=== PATIENT | male | born 1955 | race Hispanic/Latino ===

== ENCOUNTER 2021-10-27 07:25 | Inpatient (IN) | payer MEDICARE, OTHER ==
[~2021-10-27] VITALS: Ht 177.8 cm; Wt 89.8 kg
[~2021-10-27 07:25] MED LIST: ADVAIR 500-501 EACH IH; NAPROXEN PO; SAXAGLIPTIN; Z.0.ADVAIR 500/501 E INH; Z.0.GABAPENTIN300 MG PO; Z.0.LEXAPRO10 MG PO; [UNRECOGNIZED DRUG - OTHER]
[2021-10-27] MEDS ORDERED: SODIUM CHLORIDE 0.9% 1000ML 1,000 ML IV STA (07:44)
[2021-10-27] MEDS ORDERED: ONDANSETRON HCL INJ 2MG/ML 2ML 2 MG/ML VIAL IV PRN (08:00)
[2021-10-27] MEDS ORDERED: ACETAMINOPHEN 325 MG TAB PO PRN (08:00)
[2021-10-27 08:13] LABS: BASOPHILS % 0.5 % (0.0-1.0); EOSINOPHILS # (AUTO) 0.1 (0.0-0.4); EOSINOPHILS % 1.7 % (0.0-6.0); HEMOGLOBIN 12.8 g/dL (14.0-18.0); LYMPHOCYTES # (AUTO) 1.3 (1.0-3.2); LYMPHOCYTES % 19.7 % (18.0-39.1); MEAN CORPUSCULAR HEMOGLOBIN 29.2 pg (28-32); MEAN CORPUSCULAR HGB CONC 31.2 g/dL (31-35); MEAN CORPUSCULAR VOLUME 93.4 fL (81-99); MONOCYTES # (AUTO) 0.6 (0.2-0.8); NEUTROPHILS # (AUTO) 4.4 (2.1-6.9); NEUTROPHILS % 68.6 % (38.7-80.0); PLATELET COUNT 238 x10e3/uL (140-360); RED BLOOD COUNT 4.39 x10e6/uL (4.3-5.7); RED CELL DISTRIBUTION WIDTH 13.9 % (11.7-14.4)
[2021-10-27] MEDS: PIPERACILLIN/TAZOBACTAM 3.375 GM in SODIUM CHLORIDE 0.9% 50ML 50 ML IV SCH ×3 (08:20→20:39)
[2021-10-27 08:28] LABS: CLARITY,URINE TURBID (CLEAR); COLOR,URINE YELLOW (YELLOW); KETONES,URINE NEGATIVE (NEGATIVE); LEUKOCYTE ESTERASE ,URINE MODERATE (NEGATIVE); NITRITE,URINE POSITIVE (NEGATIVE); PROTEIN,URINE DIPSTICK NEGATIVE (NEGATIVE); URINE UROBILINOGEN 0.2 mg/dL (0.2 - 1)
[2021-10-27 08:29] LABS: ALBUMIN 3.9 g/dL (3.5-5.0); CALCIUM 9.4 mg/dL (8.4-10.2); CREATININE, SERUM 0.85 mg/dL (0.72-1.25); MAGNESIUM 1.8 MG/DL (1.3-2.1)
[2021-10-27 08:54] LABS: BACTERIA,URINE MANY /HPF; EPITHELIAL CELLS,URINE FEW /LPF; RBC,URINE >50 /HPF (0-5); WBC,URINE (MAN) >50 /HPF (0-5)
[2021-10-27 09:01] VITALS: BP 154/74
[2021-10-27 09:15] VITALS: BP 154/74
[2021-10-27 11:38] VITALS: BP 140/73
[2021-10-27] MEDS ORDERED: DEXTROSE 50% SYRINGE 50 ML IV PRN (12:30)
[2021-10-27] MEDS ORDERED: IOPAMIDOL 370 MG/ML 200 ML INFUS..BTL INJ ONE (15:37)
[2021-10-27] MEDS ORDERED: SODIUM CHLORIDE 0.9% 250ML 250 ML ONE (15:37)
[2021-10-27 15:42] VITALS: BP 127/70
[2021-10-27] MEDS: INSULIN REGULAR, HUMAN 100 UNIT/1 ML SQ SCH ×2 (16:30→20:40)
[2021-10-27] MEDS: APIXABAN 5 MG TABLET PO SCH (17:44)
[2021-10-27 20:00] VITALS: BP 155/85
[2021-10-27 20:02] VITALS: BP 127/70
[2021-10-28] VITALS (8 sets, daily range): BP systolic 114–147; BP diastolic 54–78
[2021-10-28] MEDS: PIPERACILLIN/TAZOBACTAM 3.375 GM in SODIUM CHLORIDE 0.9% 50ML 50 ML IV SCH ×4 (02:36→19:56)
[2021-10-28 07:21] LABS: BASOPHILS % 0.5 % (0.0-1.0); EOSINOPHILS # (AUTO) 0.1 (0.0-0.4); EOSINOPHILS % 1.1 % (0.0-6.0); HEMATOCRIT 41.2 % (38.2-49.6); LYMPHOCYTES # (AUTO) 1.5 (1.0-3.2); LYMPHOCYTES % 20.6 % (18.0-39.1); MEAN CORPUSCULAR HEMOGLOBIN 28.9 pg (28-32); MEAN CORPUSCULAR HGB CONC 31.6 g/dL (31-35); MEAN CORPUSCULAR VOLUME 91.6 fL (81-99); MONOCYTES # (AUTO) 0.6 (0.2-0.8); MONOCYTES % 8.6 % (4.4-11.3); NEUTROPHILS # (AUTO) 5.1 (2.1-6.9); NEUTROPHILS % 68.9 % (38.7-80.0); PLATELET COUNT 240 x10e3/uL (140-360); RED CELL DISTRIBUTION WIDTH 13.7 % (11.7-14.4)
[2021-10-28] MEDS: INSULIN REGULAR, HUMAN 100 UNIT/1 ML SQ SCH ×4 (07:30→20:50)
[2021-10-28 07:49] LABS: ALBUMIN 3.9 g/dL (3.5-5.0); ALBUMIN/GLOBULIN RATIO 1.1 (0.8-2.0); ANION GAP 15.1 mmol/L (8-16); CALCIUM 9.7 mg/dL (8.4-10.2); CREATININE, SERUM 0.84 mg/dL (0.72-1.25); POTASSIUM 4.1 mmol/L (3.5-5.1)
[2021-10-28] MEDS: SALMETEROL/FLUTICASONE 500/50 INH SCH ×2 (09:00→09:15)
[2021-10-28] MEDS: ESCITALOPRAM OXALATE 10 MG TAB PO SCH (09:15)
[2021-10-28] MEDS: APIXABAN 5 MG TABLET PO SCH ×2 (09:15→17:14)
[2021-10-28] MEDS: GABAPENTIN 300 MG CAP PO SCH (09:15)
[2021-10-29] VITALS (9 sets, daily range): BP systolic 113–158; BP diastolic 50–81
[2021-10-29] MEDS: PIPERACILLIN/TAZOBACTAM 3.375 GM in SODIUM CHLORIDE 0.9% 50ML 50 ML IV SCH ×4 (02:00→21:10)
[2021-10-29] MEDS: INSULIN REGULAR, HUMAN 100 UNIT/1 ML SQ SCH ×5 (07:29→22:32)
[2021-10-29] MEDS: APIXABAN 5 MG TABLET PO SCH ×2 (08:20→16:40)
[2021-10-29] MEDS: SALMETEROL/FLUTICASONE 500/50 INH SCH (08:20)
[2021-10-29] MEDS: GABAPENTIN 300 MG CAP PO SCH (08:20)
[2021-10-29] MEDS: ESCITALOPRAM OXALATE 10 MG TAB PO SCH (08:20)
[2021-10-30] VITALS (7 sets, daily range): BP systolic 0–127; BP diastolic 64–71
[2021-10-30] MEDS: PIPERACILLIN/TAZOBACTAM 3.375 GM in SODIUM CHLORIDE 0.9% 50ML 50 ML IV SCH ×4 (03:27→20:46)
[2021-10-30] MEDS: INSULIN REGULAR, HUMAN 100 UNIT/1 ML SQ SCH ×4 (07:30→20:48)
[2021-10-30] MEDS: ESCITALOPRAM OXALATE 10 MG TAB PO SCH (10:20)
[2021-10-30] MEDS: APIXABAN 5 MG TABLET PO SCH ×2 (10:20→17:01)
[2021-10-30] MEDS: GABAPENTIN 300 MG CAP PO SCH (10:20)
[2021-10-30] MEDS: SALMETEROL/FLUTICASONE 500/50 INH SCH (20:45)
[2021-10-31] MEDS: PIPERACILLIN/TAZOBACTAM 3.375 GM in SODIUM CHLORIDE 0.9% 50ML 50 ML IV SCH ×2 (01:26→08:26)
[2021-10-31 04:00] VITALS: BP 136/68
[2021-10-31] MEDS: INSULIN REGULAR, HUMAN 100 UNIT/1 ML SQ SCH ×2 (07:30→11:41)
[2021-10-31 08:23] VITALS: BP 115/70
[2021-10-31] MEDS: GABAPENTIN 300 MG CAP PO SCH (08:26)
[2021-10-31] MEDS: ESCITALOPRAM OXALATE 10 MG TAB PO SCH (08:26)
[2021-10-31 08:56] VITALS: BP 115/70
[2021-10-31] MEDS: MEROPENEM 500 MG in SODIUM CHLORIDE 0.9% 50ML 50 ML IV SCH ×2 (09:59→13:52)
[2021-10-31 12:07] VITALS: BP 119/75
[2021-10-31 15:00] VITALS: BP 144/82
[2021-10-31] MEDS ORDERED: MEROPENEM500 MG (15:15)
[2021-10-31] MEDS ORDERED: ONDANSETRON HCL 4 MG ORAL DISINTEGRATING TAB PO PRN (15:45)
[2021-11-01] MEDS ORDERED: ELIQUIS5 MG PO (15:34)
[2021-11-01] MEDS ORDERED: JANUMET XR 1001 EACH PO (15:34)
[2021-11-01] MEDS ORDERED: [UNRECOGNIZED DRUG - OTHER] PO (15:38)
[2021-11-02] MEDS ORDERED: AVONEX PEN30 MCG/0.5 IM (12:04)
[2021-11-02] MEDS ORDERED: NAPROXEN500 M1 PO (12:04)
[2021-11-02] MEDS ORDERED: MEROPENEM500 MG IV (12:16)
[2021-11-03] MEDS ORDERED: LOSARTAN PO (07:29)
== END 2021-10-31 15:47 | disposition home or self-care (01) | DRG 690 ==
LOC: ER 07:30 → ERHOLD 07:57 → MED/SURG3 08:48
PROVIDERS: ADMIT Internal Medicine; ATTEND Internal Medicine
PROC: 02HV33Z Insertion of Infusion Device into Superior Vena Cava, Percutaneous Approach (ICD-10-PCS; principal; 2021-10-30)
PROC: XW043N5 Introduction of Meropenem-vaborbactam Anti-infective into Central Vein, Percutaneous Approach, New Technology Group 5 (ICD-10-PCS; 2021-10-31)
DX: N39.0 Urinary tract infection, site not specified (principal); Z16.12 Extended spectrum beta lactamase (ESBL) resistance; B96.20 Unspecified Escherichia coli [E. coli] as the cause of diseases classified elsewhere; E11.65 Type 2 diabetes mellitus with hyperglycemia; Z86.718 Personal history of other venous thrombosis and embolism; Z79.01 Long term (current) use of anticoagulants; Z86.711 Personal history of pulmonary embolism; G35 Multiple sclerosis; N40.0 Benign prostatic hyperplasia without lower urinary tract symptoms; N20.0 Calculus of kidney; I10 Essential (primary) hypertension; Z96.0 Presence of urogenital implants; F32.A Depression, unspecified; N31.9 Neuromuscular dysfunction of bladder, unspecified; D64.9 Anemia, unspecified; N52.9 Male erectile dysfunction, unspecified; E66.9 Obesity, unspecified; Z68.28 Body mass index [BMI] 28.0-28.9, adult; Z20.822 Contact with and (suspected) exposure to COVID-19; R31.29 Other microscopic hematuria; N40.1 Benign prostatic hyperplasia with lower urinary tract symptoms; N13.8 Other obstructive and reflux uropathy
CPT/HCPCS: 36415; 36569; 71045; 74178; 80053; 81001; 82948; 83735; 85025; 87040; 87086; 87186; 99284; J2185; J2543; J7030; J7050; Q9967; U0002

== ENCOUNTER → 2021-11-03 | Day surgery (SDC) | payer OTHER ==
[2021-11-01 16:28] LABS: BASOPHILS % 0.3 % (0.0-1.0); EOSINOPHILS # (AUTO) 0.1 (0.0-0.4); EOSINOPHILS % 1.5 % (0.0-6.0); HEMATOCRIT 41.8 % (38.2-49.6); HEMOGLOBIN 13.2 g/dL (14.0-18.0); LYMPHOCYTES # (AUTO) 1.2 (1.0-3.2); LYMPHOCYTES % 16.2 % (18.0-39.1); MEAN CORPUSCULAR HEMOGLOBIN 28.8 pg (28-32); MEAN CORPUSCULAR HGB CONC 31.6 g/dL (31-35); MEAN CORPUSCULAR VOLUME 91.3 fL (81-99); MONOCYTES # (AUTO) 0.8 (0.2-0.8); MONOCYTES % 10.4 % (4.4-11.3); NEUTROPHILS # (AUTO) 5.4 (2.1-6.9); NEUTROPHILS % 71.2 % (38.7-80.0); PLATELET COUNT 195 x10e3/uL (140-360); RED BLOOD COUNT 4.58 x10e6/uL (4.3-5.7); RED CELL DISTRIBUTION WIDTH 13.8 % (11.7-14.4)
[2021-11-01 16:50] LABS: CALCIUM 9.4 mg/dL (8.4-10.2); CREATININE, SERUM 0.86 mg/dL (0.72-1.25)
[~2021-11-03] MED LIST changes: +AVONEX PEN30 MCG/0.5 IM; +BELLADONNA/OPIUM 30 MG SUPP RC ONE; +DEXAMETHASONE SOD PHOS INJ 4 MG/ML SDV ONE; +ELIQUIS5 MG PO; +EPHEDRINE SULFATE INJ 50 MG/ML VIAL ONE; +FENTANYL CITRATE/PF 100MCG/2 ML INJ ONE; +GENTAMICIN 80MG/NS 100 ML 200 ML IV ONE; +GLYCOPYRROLATE INJ 0.2 MG/ML VIAL ONE; +IOPAMIDOL 300MG/ML 50ML INFUS..BTL IV ONE; +JANUMET XR 1001 EACH PO; +LIDOCAINE HCL 2% LOCAL INJ 5 ML SDV VIAL INJ ONE; +LOSARTAN PO; +MEROPENEM500 MG; +MEROPENEM500 MG IV; +MIDAZOLAM HCL 2 MG/2 ML VIAL ONE; +NAPROXEN500 M1 PO; +ONDANSETRON HCL INJ 2MG/ML 2ML 2 MG/ML VIAL ONE; +POVIDONE IODINE 0.05% 0.05 % ML PO ONE; +PROPOFOL IV EMULSION 10 MG/ML 20 ML VIAL ONE; +SEVOFLURANE INHAL SOLN 250 ML PEN BTL ONE; +[UNRECOGNIZED DRUG - OTHER] PO
[2021-11-03 11:15] VITALS: BP 138/89
== END | disposition home or self-care (01) ==
LOC: OR 06:47
PROVIDERS: ATTEND Urology
DX: N20.0 Calculus of kidney (principal); N35.919 Unspecified urethral stricture, male, unspecified site; N39.0 Urinary tract infection, site not specified; N40.1 Benign prostatic hyperplasia with lower urinary tract symptoms; N13.8 Other obstructive and reflux uropathy; N32.89 Other specified disorders of bladder; E11.9 Type 2 diabetes mellitus without complications; G35 Multiple sclerosis; I49.1 Atrial premature depolarization; J44.9 Chronic obstructive pulmonary disease, unspecified; F32.A Depression, unspecified; Z01.810 Encounter for preprocedural cardiovascular examination; Z01.812 Encounter for preprocedural laboratory examination; Z01.818 Encounter for other preprocedural examination; Z20.822 Contact with and (suspected) exposure to COVID-19; Z79.02 Long term (current) use of antithrombotics/antiplatelets; Z79.899 Other long term (current) drug therapy; Z86.718 Personal history of other venous thrombosis and embolism; Z86.711 Personal history of pulmonary embolism
CPT/HCPCS: 36415; 50590; 71046; 74018; 80048; 82948; 83970; 84550; 85025; 93005; C1758; J1100; J1580; J2001; J2250; J2405; J3010; U0002

== ENCOUNTER → 2021-11-27 | Outpatient (CLI) | payer OTHER ==
[~2021-11-27] MED LIST changes: -BELLADONNA/OPIUM 30 MG SUPP RC ONE; -DEXAMETHASONE SOD PHOS INJ 4 MG/ML SDV ONE; -EPHEDRINE SULFATE INJ 50 MG/ML VIAL ONE; -FENTANYL CITRATE/PF 100MCG/2 ML INJ ONE; -GENTAMICIN 80MG/NS 100 ML 200 ML IV ONE; -GLYCOPYRROLATE INJ 0.2 MG/ML VIAL ONE; -IOPAMIDOL 300MG/ML 50ML INFUS..BTL IV ONE; -LIDOCAINE HCL 2% LOCAL INJ 5 ML SDV VIAL INJ ONE; -MIDAZOLAM HCL 2 MG/2 ML VIAL ONE; -ONDANSETRON HCL INJ 2MG/ML 2ML 2 MG/ML VIAL ONE; -POVIDONE IODINE 0.05% 0.05 % ML PO ONE; -PROPOFOL IV EMULSION 10 MG/ML 20 ML VIAL ONE; -SEVOFLURANE INHAL SOLN 250 ML PEN BTL ONE
== END ==
LOC: RAD 08:22
PROVIDERS: ATTEND Urology
DX: N20.0 Calculus of kidney (principal)
CPT/HCPCS: 74018

== ENCOUNTER 2022-01-30 10:12 | Emergency (ER) | payer MEDICARE, OTHER ==
[~2022-01-30] VITALS: Ht 177.8 cm; Wt 89.8 kg
[2022-01-30 11:02] LABS: BASOPHILS % 0.3 % (0.0-1.0); EOSINOPHILS # (AUTO) 0.1 (0.0-0.4); EOSINOPHILS % 0.7 % (0.0-6.0); HEMATOCRIT 47.5 % (38.2-49.6); HEMOGLOBIN 15.5 g/dL (14.0-18.0); LYMPHOCYTES # (AUTO) 1.5 (1.0-3.2); LYMPHOCYTES % 12.7 % (18.0-39.1); MEAN CORPUSCULAR HEMOGLOBIN 29.8 pg (28-32); MEAN CORPUSCULAR HGB CONC 32.6 g/dL (31-35); MEAN CORPUSCULAR VOLUME 91.2 fL (81-99); MONOCYTES # (AUTO) 0.8 (0.2-0.8); MONOCYTES % 6.7 % (4.4-11.3); NEUTROPHILS # (AUTO) 9.4 (2.1-6.9); NEUTROPHILS % 78.5 % (38.7-80.0); PLATELET COUNT 249 x10e3/uL (140-360); RED BLOOD COUNT 5.21 x10e6/uL (4.3-5.7); RED CELL DISTRIBUTION WIDTH 14.5 % (11.7-14.4)
[2022-01-30 11:21] LABS: ANION GAP 14.5 mmol/L (8-16); CALCIUM 9.6 mg/dL (8.4-10.2); CREATININE, SERUM 0.98 mg/dL (0.72-1.25); POTASSIUM 4.5 mmol/L (3.5-5.1)
[2022-01-30 11:42] LABS: CLARITY,URINE CLEAR (CLEAR); COLOR,URINE YELLOW (YELLOW)
[2022-01-30 11:43] LABS: KETONES,URINE NEGATIVE (NEGATIVE); LEUKOCYTE ESTERASE ,URINE TRACE (NEGATIVE); NITRITE,URINE NEGATIVE (NEGATIVE); PROTEIN,URINE DIPSTICK NEGATIVE (NEGATIVE); URINE UROBILINOGEN 0.2 mg/dL (0.2 - 1)
[2022-01-30 12:22] LABS: BACTERIA,URINE MODERATE /HPF; WBC,URINE (MAN) 0-5 /HPF (0-5)
[2022-01-30 12:23] LABS: EPITHELIAL CELLS,URINE FEW /LPF
[2022-01-30] MEDS ORDERED: FOSFOMYCIN TROME3 GM PO (12:29)
== END 2022-01-30 14:20 | disposition home or self-care (01) ==
LOC: ER 10:18
DX: R30.0 Dysuria (principal); N39.0 Urinary tract infection, site not specified; I10 Essential (primary) hypertension; E11.65 Type 2 diabetes mellitus with hyperglycemia; F32.A Depression, unspecified; Z86.718 Personal history of other venous thrombosis and embolism
CPT/HCPCS: 36415; 71045; 80048; 81001; 85025; 85379; 87086; 99284

== ENCOUNTER 2022-03-09 10:42 | Inpatient (IN) | payer MEDICARE, OTHER ==
[2022-03-07 13:44] LABS: BASOPHILS % 0.3 % (0.0-1.0); EOSINOPHILS # (AUTO) 0.1 (0.0-0.4); EOSINOPHILS % 0.8 % (0.0-6.0); HEMATOCRIT 40.8 % (38.2-49.6); HEMOGLOBIN 13.2 g/dL (14.0-18.0); LYMPHOCYTES # (AUTO) 1.4 (1.0-3.2); LYMPHOCYTES % 21.4 % (18.0-39.1); MEAN CORPUSCULAR HEMOGLOBIN 29.3 pg (28-32); MEAN CORPUSCULAR HGB CONC 32.4 g/dL (31-35); MEAN CORPUSCULAR VOLUME 90.7 fL (81-99); MONOCYTES # (AUTO) 0.6 (0.2-0.8); MONOCYTES % 9.3 % (4.4-11.3); NEUTROPHILS # (AUTO) 4.3 (2.1-6.9); NEUTROPHILS % 67.9 % (38.7-80.0); PLATELET COUNT 188 x10e3/uL (140-360); RED CELL DISTRIBUTION WIDTH 14.6 % (11.7-14.4)
[2022-03-07 14:04] LABS: ANION GAP 13.8 mmol/L (8-16); CREATININE, SERUM 0.79 mg/dL (0.72-1.25); POTASSIUM 3.8 mmol/L (3.5-5.1)
[~2022-03-09] VITALS: Ht 177.8 cm; Wt 86.2 kg
[~2022-03-09 10:42] MED LIST changes: +FOSFOMYCIN TROME3 GM PO; +MULTI-VITAMIN1 EACH PO
[2022-03-09] MEDS ORDERED: CEFTRIAXONE 1 GM VIAL ONE (11:58)
[2022-03-09] MEDS ORDERED: SODIUM CHLORIDE 0.9% 1000ML 1,000 ML ONE (11:58)
[2022-03-09] MEDS ORDERED: GENTAMICIN 80MG/NS 100 ML 200 ML IV ONE (11:58)
[2022-03-09] MEDS ORDERED: POVIDONE IODINE 0.05% 0.05 % ML PO ONE (12:14)
[2022-03-09] MEDS ORDERED: ONDANSETRON HCL INJ 2MG/ML 2ML 2 MG/ML VIAL ONE (12:14)
[2022-03-09] MEDS ORDERED: SEVOFLURANE INHAL SOLN 250 ML PEN BTL ONE (12:14)
[2022-03-09] MEDS ORDERED: LIDOCAINE HCL 2% LOCAL INJ 5 ML SDV VIAL INJ ONE (12:14)
[2022-03-09] MEDS ORDERED: PROPOFOL IV EMULSION 10 MG/ML 20 ML VIAL ONE (12:14)
[2022-03-09] MEDS ORDERED: DEXAMETHASONE SOD PHOS INJ 4 MG/ML SDV ONE (12:14)
[2022-03-09] MEDS ORDERED: MIDAZOLAM HCL 2 MG/2 ML VIAL ONE (12:40)
[2022-03-09] MEDS ORDERED: FENTANYL CITRATE/PF 100MCG/2 ML INJ ONE ×2 (12:40→17:34)
[2022-03-09] MEDS ORDERED: BELLADONNA/OPIUM 30 MG SUPP RC ONE (15:13)
[2022-03-09] MEDS ORDERED: IOPAMIDOL 610MG/1ML 300 MG/ML VIAL IV ONE (15:13)
[2022-03-09] MEDS ORDERED: PHENAZOPYRIDINE HCL 100 MG TAB PO PRN (17:15)
[2022-03-09] MEDS ORDERED: ACETAMINOPHEN/CODEINE 300MG - 30MG TAB PO PRN (17:15)
[2022-03-09] MEDS ORDERED: DIPHENHYDRAMINE HCL 25 MG CAP PO PRN (17:15)
[2022-03-09] MEDS ORDERED: MORPHINE SULFATE 1 MG/ML 30ML PCA IV PRN (17:15)
[2022-03-09] MEDS ORDERED: NALOXONE HCL INJ 0.4 MG/ML AMP IV PRN (17:15)
[2022-03-09] MEDS ORDERED: ACETAMINOPHEN 1000 MG/100 ML IV PRN (17:15)
[2022-03-09] MEDS ORDERED: B&O 60MG R/S 60 MG SUPP PR PRN (17:15)
[2022-03-09] MEDS ORDERED: ONDANSETRON HCL INJ 2MG/ML 2ML 2 MG/ML VIAL IV PRN (17:15)
[2022-03-09] MEDS ORDERED: MEPERIDINE HCL INJ 25 MG/ML VIAL ONE (17:21)
[2022-03-09 17:43] LABS: BASOPHILS % 0.1 % (0.0-1.0); EOSINOPHILS % 0.4 % (0.0-6.0); HEMATOCRIT 39.7 % (38.2-49.6); HEMOGLOBIN 12.5 g/dL (14.0-18.0); LYMPHOCYTES # (AUTO) 1.3 (1.0-3.2); LYMPHOCYTES % 13.8 % (18.0-39.1); MEAN CORPUSCULAR HEMOGLOBIN 29.1 pg (28-32); MEAN CORPUSCULAR HGB CONC 31.5 g/dL (31-35); MEAN CORPUSCULAR VOLUME 92.3 fL (81-99); MONOCYTES # (AUTO) 0.3 (0.2-0.8); NEUTROPHILS # (AUTO) 7.7 (2.1-6.9); NEUTROPHILS % 82.3 % (38.7-80.0); PLATELET COUNT 171 x10e3/uL (140-360); RED CELL DISTRIBUTION WIDTH 14.5 % (11.7-14.4)
[2022-03-09 18:04] LABS: ANION GAP 12.5 mmol/L (8-16); CALCIUM 7.8 mg/dL (8.4-10.2); CREATININE, SERUM 0.71 mg/dL (0.72-1.25); POTASSIUM 4.5 mmol/L (3.5-5.1)
[2022-03-09] MEDS ORDERED: MORPHINE SULFATE 1 MG/ML 30ML PCA ONE (18:26)
[2022-03-09 20:00] VITALS: BP_SYST 146; BP_SYST 157; BP_DIAS 74; BP_DIAS 82
[2022-03-09] MEDS: SODIUM CHLORIDE 0.9% 1000ML 1,000 ML IV SCH (21:12)
[2022-03-10] VITALS (7 sets, daily range): BP systolic 130–142; BP diastolic 59–74
[2022-03-10 06:54] LABS: BASOPHILS % 0.1 % (0.0-1.0); EOSINOPHILS % 0.2 % (0.0-6.0); HEMATOCRIT 37.9 % (38.2-49.6); HEMOGLOBIN 12.2 g/dL (14.0-18.0); LYMPHOCYTES % 11.1 % (18.0-39.1); MEAN CORPUSCULAR HEMOGLOBIN 29.3 pg (28-32); MEAN CORPUSCULAR HGB CONC 32.2 g/dL (31-35); MEAN CORPUSCULAR VOLUME 91.1 fL (81-99); MONOCYTES # (AUTO) 0.7 (0.2-0.8); NEUTROPHILS # (AUTO) 7.6 (2.1-6.9); NEUTROPHILS % 81.3 % (38.7-80.0); PLATELET COUNT 184 x10e3/uL (140-360); RED BLOOD COUNT 4.16 x10e6/uL (4.3-5.7); RED CELL DISTRIBUTION WIDTH 14.2 % (11.7-14.4)
[2022-03-10 07:17] LABS: ANION GAP 12.2 mmol/L (8-16); CALCIUM 7.9 mg/dL (8.4-10.2); CREATININE, SERUM 0.7 mg/dL (0.72-1.25); POTASSIUM 4.2 mmol/L (3.5-5.1)
[2022-03-10] MEDS: SODIUM CHLORIDE 0.9% 1000ML 1,000 ML IV SCH ×2 (07:35→20:30)
[2022-03-10] MEDS: DOCUSATE SODIUM 100 MG CAP PO SCH ×2 (09:00→18:13)
[2022-03-10] MEDS ORDERED: DEXTROSE 50% SYRINGE 50 ML IV PRN (10:45)
[2022-03-10] MEDS: INSULIN LISPRO 100 UNIT/1 ML 3ML VIAL SQ SCH ×3 (11:30→20:32)
[2022-03-10] MEDS ORDERED: ALBUTEROL/IPRATROPIUM 3 ML NEB NEB PRN (11:45)
[2022-03-10] MEDS ORDERED: AVODART0.5 MG PO (11:57)
[2022-03-10] MEDS ORDERED: DOCUSATE SODIU100 MG PO (11:57)
[2022-03-10] MEDS ORDERED: SIMVASTATIN20 MG PO (11:57)
[2022-03-10] MEDS ORDERED: MONTELUKAST SOD10 MG PO (13:26)
[2022-03-10] MEDS ORDERED: FLOMAX0.4 MG PO (13:26)
[2022-03-10] MEDS ORDERED: OXYBUTYNIN CHLOR5 M1 PO (13:26)
[2022-03-10] MEDS ORDERED: DOCUSATE SODIUM 100 MG CAP PO SCH (17:00)
[2022-03-10] MEDS ORDERED: APIXABAN 5 MG TABLET PO SCH (17:00)
[2022-03-10] MEDS: MONTELUKAST SODIUM 10 MG TAB PO SCH (20:30)
[2022-03-10] MEDS: SIMVASTATIN 20 MG TAB PO SCH (20:30)
[2022-03-11] VITALS (7 sets, daily range): BP systolic 111–153; BP diastolic 62–76
[2022-03-11 05:58] LABS: BASOPHILS % 0.1 % (0.0-1.0); EOSINOPHILS # (AUTO) 0.1 (0.0-0.4); EOSINOPHILS % 0.9 % (0.0-6.0); HEMATOCRIT 38.6 % (38.2-49.6); HEMOGLOBIN 12.5 g/dL (14.0-18.0); LYMPHOCYTES # (AUTO) 1.5 (1.0-3.2); LYMPHOCYTES % 18.4 % (18.0-39.1); MEAN CORPUSCULAR HEMOGLOBIN 29.1 pg (28-32); MEAN CORPUSCULAR HGB CONC 32.4 g/dL (31-35); MONOCYTES # (AUTO) 0.8 (0.2-0.8); MONOCYTES % 10.4 % (4.4-11.3); NEUTROPHILS # (AUTO) 5.5 (2.1-6.9); NEUTROPHILS % 69.8 % (38.7-80.0); PLATELET COUNT 170 x10e3/uL (140-360); RED BLOOD COUNT 4.29 x10e6/uL (4.3-5.7); RED CELL DISTRIBUTION WIDTH 14.4 % (11.7-14.4)
[2022-03-11] MEDS: SALMETEROL/FLUTICASONE 500/50 INH SCH (06:00)
[2022-03-11 06:15] LABS: ANION GAP 13.8 mmol/L (8-16); CREATININE, SERUM 0.71 mg/dL (0.72-1.25); POTASSIUM 3.8 mmol/L (3.5-5.1)
[2022-03-11] MEDS: INSULIN LISPRO 100 UNIT/1 ML 3ML VIAL SQ SCH ×4 (07:30→21:00)
[2022-03-11] MEDS: SODIUM CHLORIDE 0.9% 1000ML 1,000 ML IV SCH ×2 (08:45→23:35)
[2022-03-11] MEDS: OXYBUTYNIN CHLORIDE XL 5 MG TAB PO SCH (09:00)
[2022-03-11] MEDS: DOCUSATE SODIUM 100 MG CAP PO SCH ×2 (09:00→17:00)
[2022-03-11] MEDS: SENNOSIDES 8.6 MG TAB PO SCH (09:00)
[2022-03-11] MEDS: SITAGLIPTIN 100 MG TAB PO SCH (09:00)
[2022-03-11] MEDS: TAMSULOSIN HCL 0.4 MG CAP PO SCH (09:00)
[2022-03-11] MEDS: DUTASTERIDE 0.5 MG CAP PO SCH (09:00)
[2022-03-11] MEDS: METFORMIN HCL 500 MG TAB PO SCH (09:00)
[2022-03-11] MEDS: LOSARTAN POTASSIUM 100 MG TAB PO SCH (09:00)
[2022-03-11] MEDS ORDERED: DOCUSATE SODIUM 100 MG CAP PO SCH (09:00)
[2022-03-11] MEDS ORDERED: OYST-CAL-D 500MG TABLET PO ONE (10:30)
[2022-03-11] MEDS ORDERED: MAGNESIUM SULFATE 2GM/50ML 50 ML IV ONE (10:30)
[2022-03-11] MEDS: MONTELUKAST SODIUM 10 MG TAB PO SCH (21:14)
[2022-03-11] MEDS: SIMVASTATIN 20 MG TAB PO SCH (21:14)
[2022-03-12] VITALS: BP 158/84
[2022-03-12 04:00] VITALS: BP 135/70
[2022-03-12 05:55] LABS: BASOPHILS % 0.3 % (0.0-1.0); EOSINOPHILS # (AUTO) 0.1 (0.0-0.4); EOSINOPHILS % 1.4 % (0.0-6.0); HEMATOCRIT 39.6 % (38.2-49.6); HEMOGLOBIN 13.1 g/dL (14.0-18.0); LYMPHOCYTES # (AUTO) 1.5 (1.0-3.2); LYMPHOCYTES % 18.5 % (18.0-39.1); MEAN CORPUSCULAR HEMOGLOBIN 29.3 pg (28-32); MEAN CORPUSCULAR HGB CONC 33.1 g/dL (31-35); MEAN CORPUSCULAR VOLUME 88.6 fL (81-99); MONOCYTES % 12.3 % (4.4-11.3); NEUTROPHILS # (AUTO) 5.4 (2.1-6.9); NEUTROPHILS % 66.9 % (38.7-80.0); PLATELET COUNT 179 x10e3/uL (140-360); RED BLOOD COUNT 4.47 x10e6/uL (4.3-5.7); RED CELL DISTRIBUTION WIDTH 14.4 % (11.7-14.4)
[2022-03-12] MEDS: SALMETEROL/FLUTICASONE 500/50 INH SCH (06:03)
[2022-03-12 06:25] LABS: ANION GAP 11.9 mmol/L (8-16); CALCIUM 8.4 mg/dL (8.4-10.2); CREATININE, SERUM 0.73 mg/dL (0.72-1.25); POTASSIUM 3.9 mmol/L (3.5-5.1)
[2022-03-12 06:34] LABS: MAGNESIUM 1.9 MG/DL (1.3-2.1)
[2022-03-12] MEDS: INSULIN LISPRO 100 UNIT/1 ML 3ML VIAL SQ SCH ×2 (07:30→11:30)
[2022-03-12 07:58] VITALS: BP 139/77
[2022-03-12 08:51] VITALS: BP 139/77
[2022-03-12] MEDS: METFORMIN HCL 500 MG TAB PO SCH (08:56)
[2022-03-12] MEDS: DOCUSATE SODIUM 100 MG CAP PO SCH (08:56)
[2022-03-12] MEDS: DUTASTERIDE 0.5 MG CAP PO SCH (08:56)
[2022-03-12] MEDS: OXYBUTYNIN CHLORIDE XL 5 MG TAB PO SCH (08:57)
[2022-03-12] MEDS: LOSARTAN POTASSIUM 100 MG TAB PO SCH (08:57)
[2022-03-12] MEDS: TAMSULOSIN HCL 0.4 MG CAP PO SCH (08:57)
[2022-03-12] MEDS: SENNOSIDES 8.6 MG TAB PO SCH (08:58)
[2022-03-12] MEDS: SITAGLIPTIN 100 MG TAB PO SCH (08:58)
[2022-03-12 11:55] VITALS: BP 128/72
== END 2022-03-12 11:55 | disposition home or self-care (01) | DRG 713 ==
LOC: OR 10:42 → PACU V 16:03 → MED/SURG 19:28
PROVIDERS: ADMIT Internal Medicine; ATTEND Internal Medicine
PROC: BT141ZZ Fluoroscopy of Kidneys, Ureters and Bladder using Low Osmolar Contrast (ICD-10-PCS; 2022-03-09)
PROC: 0TCB8ZZ Extirpation of Matter from Bladder, Via Natural or Artificial Opening Endoscopic (ICD-10-PCS; 2022-03-09)
PROC: 0T788ZZ Dilation of Bilateral Ureters, Via Natural or Artificial Opening Endoscopic (ICD-10-PCS; 2022-03-09)
PROC: 0V508ZZ Destruction of Prostate, Via Natural or Artificial Opening Endoscopic (ICD-10-PCS; principal; 2022-03-09 15:23)
PROC: 0T7D8ZZ Dilation of Urethra, Via Natural or Artificial Opening Endoscopic (ICD-10-PCS; 2022-03-09 15:23)
DX: N40.1 Benign prostatic hyperplasia with lower urinary tract symptoms (principal); N13.8 Other obstructive and reflux uropathy; N39.0 Urinary tract infection, site not specified; N35.919 Unspecified urethral stricture, male, unspecified site; N21.0 Calculus in bladder; J45.909 Unspecified asthma, uncomplicated; Z86.718 Personal history of other venous thrombosis and embolism; Z79.01 Long term (current) use of anticoagulants; G35 Multiple sclerosis; Z86.711 Personal history of pulmonary embolism; E78.5 Hyperlipidemia, unspecified; G89.18 Other acute postprocedural pain; I10 Essential (primary) hypertension
CPT/HCPCS: 36415; 74420; 80048; 82948; 83735; 85025; 88305; 93005; 94799; C1758; J0696; J1100; J1580; J2001; J2175; J2250; J2270; J2405; J2543; J3010; J3475; J7030

== ENCOUNTER 2022-03-14 05:48 | Inpatient (IN) | payer MEDICARE, OTHER ==
[~2022-03-14] VITALS: Ht 182.9 cm; Wt 86.2 kg
[~2022-03-14 05:48] MED LIST changes: +AVODART0.5 MG PO; +DOCUSATE SODIU100 MG PO; +FLOMAX0.4 MG PO; +MONTELUKAST SOD10 MG PO; +OXYBUTYNIN CHLOR5 M1 PO; +SIMVASTATIN20 MG PO
[2022-03-14 06:27] LABS: BASOPHILS % 0.4 % (0.0-1.0); EOSINOPHILS # (AUTO) 0.1 (0.0-0.4); EOSINOPHILS % 1.2 % (0.0-6.0); HEMATOCRIT 40.4 % (38.2-49.6); HEMOGLOBIN 13.1 g/dL (14.0-18.0); LYMPHOCYTES # (AUTO) 2.1 (1.0-3.2); LYMPHOCYTES % 20.2 % (18.0-39.1); MEAN CORPUSCULAR HEMOGLOBIN 29.2 pg (28-32); MEAN CORPUSCULAR HGB CONC 32.4 g/dL (31-35); MEAN CORPUSCULAR VOLUME 90.2 fL (81-99); MONOCYTES # (AUTO) 1.1 (0.2-0.8); MONOCYTES % 10.3 % (4.4-11.3); NEUTROPHILS # (AUTO) 7.1 (2.1-6.9); NEUTROPHILS % 67.3 % (38.7-80.0); PLATELET COUNT 208 x10e3/uL (140-360); RED BLOOD COUNT 4.48 x10e6/uL (4.3-5.7); RED CELL DISTRIBUTION WIDTH 14.8 % (11.7-14.4)
[2022-03-14 06:48] LABS: INR 0.99
[2022-03-14 06:50] LABS: CLARITY,URINE TURBID (CLEAR); COLOR,URINE RED (YELLOW); KETONES,URINE TRACE (NEGATIVE); LEUKOCYTE ESTERASE ,URINE SMALL (NEGATIVE); NITRITE,URINE POSITIVE (NEGATIVE); PROTEIN,URINE DIPSTICK >=300 (NEGATIVE); URINE UROBILINOGEN 0.2 mg/dL (0.2 - 1)
[2022-03-14 06:54] LABS: ALBUMIN 3.6 g/dL (3.5-5.0); ALBUMIN/GLOBULIN RATIO 0.8 (0.8-2.0); ANION GAP 16.7 mmol/L (8-16); CALCIUM 9.4 mg/dL (8.4-10.2); CREATININE, SERUM 1.09 mg/dL (0.72-1.25); POTASSIUM 3.7 mmol/L (3.5-5.1)
[2022-03-14 07:00] LABS: BACTERIA,URINE MANY /HPF; EPITHELIAL CELLS,URINE FEW /LPF; RBC,URINE >50 /HPF (0-5); WBC,URINE (MAN) >50 /HPF (0-5)
[2022-03-14] MEDS ORDERED: MEROPENEM 1 GM in SODIUM CHLORIDE 0.9% 100 ML IV ONE (10:00)
[2022-03-14 12:03] VITALS: BP 131/68
[2022-03-14] MEDS ORDERED: SODIUM CHLORIDE 0.9% 1000ML 2,000 ML IV PRN (13:15)
[2022-03-14] MEDS ORDERED: HEPARIN SOD (PORCINE) 1000 UNIT/ML SDV IV PRN (13:15)
[2022-03-14] MEDS ORDERED: DEXTROSE 50% SYRINGE 50 ML IV PRN (13:15)
[2022-03-14 13:30] VITALS: BP 131/68
[2022-03-14 13:36] VITALS: BP 131/68
[2022-03-14] MEDS: INSULIN LISPRO 100 UNIT/1 ML 3ML VIAL SQ SCH ×2 (16:30→20:55)
[2022-03-14 16:44] VITALS: BP 136/79
[2022-03-14] MEDS: DOCUSATE SODIUM 100 MG CAP PO SCH (17:03)
[2022-03-14] MEDS: METFORMIN HCL 500 MG TAB CR PO SCH (17:03)
[2022-03-14] MEDS: SITAGLIPTIN 100 MG TAB PO SCH (17:03)
[2022-03-14 20:00] VITALS: BP 139/74
[2022-03-14] MEDS: MONTELUKAST SODIUM 10 MG TAB PO SCH (20:53)
[2022-03-14] MEDS: SIMVASTATIN 20 MG TAB PO SCH (20:53)
[2022-03-14 21:00] VITALS: BP 139/74
[2022-03-15] VITALS (7 sets, daily range): BP systolic 116–129; BP diastolic 54–73
[2022-03-15] MEDS: INSULIN LISPRO 100 UNIT/1 ML 3ML VIAL SQ SCH ×4 (07:30→20:40)
[2022-03-15 07:33] LABS: HEMATOCRIT 40.6 % (38.2-49.6); MEAN CORPUSCULAR HEMOGLOBIN 28.8 pg (28-32); PLATELET COUNT 184 x10e3/uL (140-360); RED BLOOD COUNT 4.51 x10e6/uL (4.3-5.7); RED CELL DISTRIBUTION WIDTH 14.6 % (11.7-14.4)
[2022-03-15 07:55] LABS: ANION GAP 17.4 mmol/L (8-16); CALCIUM 9.5 mg/dL (8.4-10.2); CREATININE, SERUM 0.88 mg/dL (0.72-1.25); POTASSIUM 4.4 mmol/L (3.5-5.1)
[2022-03-15] MEDS ORDERED: SODIUM CHLORIDE 0.9% 250ML 250 ML ONE (08:09)
[2022-03-15] MEDS ORDERED: LOSARTAN 100 MG PO SCH (09:00)
[2022-03-15] MEDS: METFORMIN HCL 500 MG TAB CR PO SCH ×2 (09:07→16:49)
[2022-03-15] MEDS: SITAGLIPTIN 100 MG TAB PO SCH ×2 (09:08→16:50)
[2022-03-15] MEDS: DUTASTERIDE 0.5 MG CAP PO SCH (09:08)
[2022-03-15] MEDS: OXYBUTYNIN CHLORIDE XL 5 MG TAB PO SCH (09:09)
[2022-03-15] MEDS: DOCUSATE SODIUM 100 MG CAP PO SCH ×2 (09:09→16:49)
[2022-03-15] MEDS: TAMSULOSIN HCL 0.4 MG CAP PO SCH (09:09)
[2022-03-15] MEDS: LOSARTAN POTASSIUM 100 MG TAB PO SCH (09:09)
[2022-03-15 09:29] LABS: LYMPHOCYTES % (MANUAL) 21 % (19-48); MONOCYTES % (MANUAL) 8 % (3.4-9.0); NEUTROPHILS % (MANUAL) 60 % (40-74)
[2022-03-15 09:30] LABS: PLATELET ESTIMATE ADEQUATE; PLATELET MORPHOLOGY COMMENT NORMAL; RBC MORPHOLOGY COMMENT NORMAL
[2022-03-15] MEDS: SIMVASTATIN 20 MG TAB PO SCH (21:32)
[2022-03-15] MEDS: MONTELUKAST SODIUM 10 MG TAB PO SCH (21:32)
[2022-03-16 05:45] VITALS: BP 95/50
[2022-03-16] MEDS: INSULIN LISPRO 100 UNIT/1 ML 3ML VIAL SQ SCH ×3 (07:30→15:35)
[2022-03-16 07:36] VITALS: BP 113/75
[2022-03-16 08:05] VITALS: BP 113/75
[2022-03-16] MEDS: METFORMIN HCL 500 MG TAB CR PO SCH ×2 (08:52→15:54)
[2022-03-16] MEDS: SITAGLIPTIN 100 MG TAB PO SCH ×2 (08:52→15:54)
[2022-03-16] MEDS: DOCUSATE SODIUM 100 MG CAP PO SCH ×2 (08:53→15:54)
[2022-03-16] MEDS: TAMSULOSIN HCL 0.4 MG CAP PO SCH (08:53)
[2022-03-16] MEDS: DUTASTERIDE 0.5 MG CAP PO SCH (08:53)
[2022-03-16] MEDS: LOSARTAN POTASSIUM 100 MG TAB PO SCH (08:54)
[2022-03-16] MEDS: OXYBUTYNIN CHLORIDE XL 5 MG TAB PO SCH (08:54)
[2022-03-16 11:00] VITALS: BP 116/64
[2022-03-16] MEDS ORDERED: keflex PO (15:22)
[2022-03-16 16:00] VITALS: BP 107/64
[2022-03-16] MEDS ORDERED: LEVOFLOXACIN250 MG PO (17:51)
== END 2022-03-16 18:14 | disposition home or self-care (01) | DRG 729 ==
LOC: ER 06:01 → ERHOLD 10:10 → MED/SURG3 11:36
PROVIDERS: ADMIT Internal Medicine; ATTEND Internal Medicine
DX: N43.3 Hydrocele, unspecified (principal); L03.115 Cellulitis of right lower limb; N39.0 Urinary tract infection, site not specified; E11.9 Type 2 diabetes mellitus without complications; I10 Essential (primary) hypertension; E78.5 Hyperlipidemia, unspecified; N43.41 Spermatocele of epididymis, single; N40.0 Benign prostatic hyperplasia without lower urinary tract symptoms; N52.9 Male erectile dysfunction, unspecified; I48.91 Unspecified atrial fibrillation; Z86.711 Personal history of pulmonary embolism; Z96.0 Presence of urogenital implants; Z86.718 Personal history of other venous thrombosis and embolism; Z79.01 Long term (current) use of anticoagulants; Z87.440 Personal history of urinary (tract) infections; Z86.19 Personal history of other infectious and parasitic diseases; Z20.822 Contact with and (suspected) exposure to COVID-19
CPT/HCPCS: 0223U; 36415; 76870; 80048; 80053; 81001; 82948; 85007; 85025; 85027; 85610; 87086; 93971; 99284; J2185; J7050

== ENCOUNTER → 2022-04-25 | Outpatient (CLI) | payer OTHER ==
[~2022-04-25] MED LIST changes: +LEVOFLOXACIN250 MG PO; +LEVOFLOXACIN750 MG PO; +keflex PO
== END ==
LOC: RAD 10:17
PROVIDERS: ATTEND Urology
DX: N20.0 Calculus of kidney (principal)
CPT/HCPCS: 74018

== ENCOUNTER 2022-04-28 09:49 | Emergency (ER) | payer MEDICARE, OTHER ==
[~2022-04-28] VITALS: Ht 208.3 cm; Wt 86.2 kg
[~2022-04-28 09:49] MED LIST changes: -LEVOFLOXACIN750 MG PO
[2022-04-28 10:36] LABS: BASOPHILS % 0.2 % (0.0-1.0); EOSINOPHILS # (AUTO) 0.1 (0.0-0.4); EOSINOPHILS % 0.6 % (0.0-6.0); HEMATOCRIT 36.8 % (38.2-49.6); HEMOGLOBIN 12.2 g/dL (14.0-18.0); LYMPHOCYTES # (AUTO) 1.2 (1.0-3.2); LYMPHOCYTES % 14.5 % (18.0-39.1); MEAN CORPUSCULAR HEMOGLOBIN 30.3 pg (28-32); MEAN CORPUSCULAR HGB CONC 33.2 g/dL (31-35); MEAN CORPUSCULAR VOLUME 91.5 fL (81-99); MONOCYTES # (AUTO) 0.5 (0.2-0.8); MONOCYTES % 6.1 % (4.4-11.3); NEUTROPHILS # (AUTO) 6.3 (2.1-6.9); NEUTROPHILS % 78.1 % (38.7-80.0); PLATELET COUNT 198 x10e3/uL (140-360); RED BLOOD COUNT 4.02 x10e6/uL (4.3-5.7)
[2022-04-28 10:40] LABS: CLARITY,URINE CLOUDY (CLEAR); COLOR,URINE YELLOW (YELLOW); LEUKOCYTE ESTERASE ,URINE LARGE (NEGATIVE)
[2022-04-28 10:41] LABS: KETONES,URINE NEGATIVE (NEGATIVE); NITRITE,URINE NEGATIVE (NEGATIVE); PROTEIN,URINE DIPSTICK 1+ (NEGATIVE); URINE UROBILINOGEN 0.2 mg/dL (0.2 - 1)
[2022-04-28 10:50] LABS: ANION GAP 11.2 mmol/L (8-16); CALCIUM 8.9 mg/dL (8.4-10.2); CREATININE, SERUM 0.77 mg/dL (0.72-1.25); POTASSIUM 4.2 mmol/L (3.5-5.1)
[2022-04-28 10:53] LABS: BACTERIA,URINE MODERATE /HPF; EPITHELIAL CELLS,URINE FEW /LPF; RBC,URINE 21-50 /HPF (0-5); WBC,URINE (MAN) >50 /HPF (0-5)
[2022-04-28] MEDS ORDERED: LEVOFLOXACIN750 MG PO (11:16)
[2022-04-28] MEDS ORDERED: FLOMAX0.4 MG PO (11:16)
[2022-04-28 11:26] VITALS: BP 135/71
== END 2022-04-28 14:43 | disposition home or self-care (01) ==
LOC: ER 10:00
DX: R33.9 Retention of urine, unspecified (principal); N39.0 Urinary tract infection, site not specified; R50.9 Fever, unspecified; I10 Essential (primary) hypertension; E11.9 Type 2 diabetes mellitus without complications; J45.909 Unspecified asthma, uncomplicated; Z86.711 Personal history of pulmonary embolism
CPT/HCPCS: 36415; 51700; 80048; 81001; 85025; 99284

== ENCOUNTER → 2022-12-18 | Outpatient (CLI) | payer OTHER ==
[~2022-12-18] MED LIST changes: +LEVOFLOXACIN750 MG PO
== END ==
LOC: RAD 12:28
PROVIDERS: ATTEND Urology
DX: N20.0 Calculus of kidney (principal); N23 Unspecified renal colic
CPT/HCPCS: 74018

== ENCOUNTER → 2023-02-08 | Outpatient (CLI) | payer OTHER ==
[~2023-02-08] MED LIST changes: +CENTRUM ADULTS1 EACH PO; +ESZOPICLONE3 MG PO; +IRON 100 PLUS1 EACH PO; +JANUMET 50-5001 EACH PO; +LEXAPRO20 MG PO; +MAGNESIUM OXID400 MG PO; +NEURONTIN300 MG PO; +POTASSIUM CHLO10 ME1 PO
== END ==
LOC: CT 07:15
PROVIDERS: ATTEND Urology
DX: N20.0 Calculus of kidney (principal)
CPT/HCPCS: 74176